=== PATIENT | female | born 1970 | race Caucasian/White ===

== ENCOUNTER 2022-03-05 19:36 | Emergency (ER) | payer SELFPAY ==
[~2022-03-05] VITALS: Ht 167.6 cm; Wt 85.7 kg
[~2022-03-05 19:36] MED LIST: ASPIR 8181 MG PO; ATORVASTATIN CA20 MG PO; CIPRO500 MG PO; COUMADIN3 MG PO; FLAGYL250 MG PO; GLIMEPIRIDE2 MG PO; IBUPROFEN200 MG PO; LISINOPRIL10 MG PO; LISINOPRIL5 MG PO; METFORMIN HCL500 MG PO; METOPROLOL SUCC25 MG PO; METOPROLOL TART50 MG PO; NIFEDIPINE XL30 MG PO; NORVASC5 MG PO; PRAVASTATIN SOD20 MG PO; TYLENOL WITH C1 EACH PO; ULTRACET TABLE1 EACH PO
[2022-03-05 21:27] VITALS: BP 177/101
== END 2022-03-05 21:38 | disposition home or self-care (01) ==
LOC: ER 20:03
DX: R20.2 Paresthesia of skin (principal); M54.12 Radiculopathy, cervical region
CPT/HCPCS: 36415; 70450; 72125; 82948; 99283